=== PATIENT | male | born 1985 | race Hispanic/Latino ===

== ENCOUNTER 2018-04-09 10:00 | Emergency (ER) | payer SELFPAY ==
[2018-04-09] MEDS ORDERED: NA CHLORIDE 0.9% 1,000 ML ONE (11:16)
[2018-04-09 11:26] LABS: Absolute Lymphocytes (CBC) 1.3 K/uL (0.7-4.9); Absolute Monocytes 1.2 K/uL (0.1-1.3); Absolute Neutrophil 8.5 K/uL (1.8-8.0); Basophils % 0.3 % (0-1.3); Eosinophils % 0.5 % (0-4.4); Hematocrit 44.2 % (39.6-49.0); Lymphocytes % 11.6 % (15.3-44.8); MCH 29.5 pg (27.0-35.0); MCV 87.6 fL (80-100); Monocytes % 10.5 % (3.3-12.3); RBC Red Blood Cell Count 5.04 M/uL (4.33-5.43)
[2018-04-09 11:33] LABS: Potassium 4.8 mmol/L (3.5-5.1)
--- NOTE | 2018-04-09 12:06 | RAD REPORT ---
EXAM DESCRIPTION: CT - Maxillofacial W/Cont - 04/09/2018 11:53 am CLINICAL HISTORY: Left-sided facial swelling, soft tissue infection COMPARISON: None. TECHNIQUE: During dynamic enhancement using nonionic IV contrast, axial 2 millimeter thick images of the facial soft tissues performed. Sagittal and coronal reconstruction images were generated and rev iewed. FINDINGS: Edematous/inflammatory stranding is present in the soft tissues lateral inferior left-side . No air in the soft tissues. No abscess or drainable fluid collection. No skeletal muscle abnormality. Mastoid air cells and paranasal sinuses are clear. No globe or orbita l content abnormality. Parotid, thyroid gland and submandibular gland tissues are unremarkable. Patient has a few nonspecifi c bilateral cervical lymph nodes. No vascular abnormality. Intracranial portion of the examination is unremarkable. IMPRESSION: Cellulitis changes are present in the lateral inferior left side facial soft tissues. No abscess or drainable fluid collection.
[2018-04-09] MEDS ORDERED: LIDOCAINE 1% W/EPI 1:100,000 MDV 50 ML VIAL ONE (12:41)
--- NOTE | 2018-04-09 13:29 | ER ---
Nurse's Notes [facility] Name: Remi Juares Age: 32 yrs Sex: Male : 1985 Arrival Date: 04/09/2018 Time: 10:15 Bed 11 Private MD: None, None Diagnosis: Cutaneous abscess of face-Left lower jaw;Cellulitis of face-Left lower jaw Presentation: 04/09 10:29 Presenting complaint: Patient states: left sided facial swelling since Friday, shaved iw his face and had a bump that is now swollen, was seen at a clinic yesterday and prescribed abx and given a shot of Rocephin, family states it looks worse today, denies fever. Transition of care: patient was not received from another setting of care. Onset of symptoms was April 04, 2018. Risk Assessment: Do you want to hurt yourself or someone else? Patient reports no desire to harm self or others. Initial Sepsis Screen: Does the patient meet any 2 criteria? No. Patient's initial sepsis screen is negative. Does the patient have a suspected source of infection? No. Patient's initial sepsis screen is negative. Care prior to arrival: None. 10:29 Method Of Arrival: Ambulatory iw 10:29 Acuity: KORTNEY 3 iw Historical: - Allergies: 10:34 Clindamycin; iw - Home Meds: 10:34 Flagyl 500 mg Oral tab 1 tab every 12 hours [Active]; amoxicillin 500 mg Oral cap 1 cap iw every 8 hours [Active]; diclofenac sodium 75 mg oral TbEC 1 tab 2 times per day [Active]; - PMHx: 10:34 None; iw - PSHx: 10:34 2 cellulitis abscesses on his legs removed; iw - Immunization history:: Adult Immunizations Last tetanus immunization: unknown. - Social history:: Smoking status: Patient/guardian denies using tobacco. - Ebola Screening: : Patient negative for fever greater than or equal to 101.5 degrees Fahrenheit, and additional compatible Ebola Virus Disease symptoms Patient denies exposure to infectious person Patient denies travel to an Ebola-affected area in the 21 days before illness onset No symptoms or risks identified at this time. Screenin:05 Abuse screen: Denies threats or abuse. Denies injuries from another. Nutritional iw screening: No deficits noted. Tuberculosis screening: No symptoms or risk factors identified. Fall Risk IV access (20 points). Assessment: 10:35 General: Appears in no apparent distress. Behavior is. Pain: Complains of pain in left iw jaw. Neuro: Level of Consciousness is awake, alert, obeys commands, Oriented to person, place, time, situation, Moves all extremities. Full function. Cardiovascular: Patient's skin is warm and dry. Respiratory: Respiratory effort is even, unlabored, Respiratory pattern is regular, symmetrical. Derm: Skin is intact, is healthy with good turgor. Derm: Abscess located on left jaw. Musculoskeletal: Range of motion: intact in all extremities. 11:05 Reassessment: Patient appears in no apparent distress at this time. Patient and/or iw family updated on plan of care and expected duration. Pain level reassessed. Patient is alert, oriented x 3, equal unlabored respirations, skin warm/dry/pink. 12:41 Reassessment: Patient appears in no apparent distress at this time. Patient and/or iw family updated on plan of care and expected duration. Pain level reassessed. Patient is alert, oriented x 3, equal unlabored respirations, skin warm/dry/pink. Vital Signs: 10:34 BP 117 / 86; Pulse 75; Resp 16; Temp 98.6(TE); Pulse Ox 100% on R/A; Pain 7/10; iw 12:41 BP 107 / 64; Pulse 75; Resp 16; Pulse Ox 98% on R/A; iw ED Course: 10:15 Patient arrived in ED. mr 10:15 None, None is Private Physician. mr 10:29 Maribeth Hsieh, RN is Primary Nurse. iw 10:33 Triage completed. iw 10:34 Arm band placed on. iw 10:36 Milo Campbell PA is PHCP. cp 10:36 Cosme Alejandre MD is Attending Physician. cp 10:51 Radiology exam delayed due to lab results not completed at this time. (BUN/Creatinine). 11:05 Initial lab(s) drawn, by me, sent to lab. Inserted saline lock: 20 gauge in right iw antecubital area, using aseptic technique. Blood collected. 11:11 Radiology exam delayed due to lab results not completed at this time. (BUN/Creatinine). sj 11:47 CT completed. Patient tolerated procedure well. Patient moved to CT via wheelchair. sj Patient moved back from CT. 11:54 CT Maxillofacial W/cont In Process Unspecified. EDMS Administered Medications: 11:11 Drug: NS 0.9% 1000 ml Route: IV; Rate: 1 bolus; Site: right antecubital; iw 12:42 Follow up: IV Status: Completed infusion iw 13:00 Drug: Lidocaine-Epinephrine -1%: (1:100,000) 5 ml Volume: 20 ml; Route: Infiltration; iw 13:45 Drug: Rocephin - (cefTRIAXone) 1 grams {Note: given as IVP over 3 minutes .} Route: iw IVPB; Infused Over: 30 mins; Site: right antecubital; 13:50 Drug: Bactrim (160 mg-800 mg (DS) 1 tablet Route: PO; iw 13:50 Drug: Doxycycline 100 mg Route: PO; iw Outcome: 13:28 Discharge ordered by . avila 14:12 Patient left the ED. iw Signatures: Dispatcher [employer] EDMS Rae Oakley Susan sj Williams, Irene, RN RN iw Milo Campbell PA PA cp
--- NOTE | 2018-04-09 13:29 | EDPHYS ---
Physician Documentation [facility] Name: Remi Juares Age: 32 yrs Sex: Male : 1985 Arrival Date: 04/09/2018 Time: 10:15 Bed 11 Private MD: None, None ED Physician Cosme Alejandre HPI: 04/09 10:42 This 32 yrs old Male presents to ER via Ambulatory with complaints of Facial cp Swelling. 10:42 the patient presents with a swollen area of the left lower jaw. cp 10:42 Description: swollen, tense, warm. cp 10:42 Onset: The symptoms/episode began/occurred 6 day(s) ago. cp 10:42 Associated signs and symptoms: Pertinent negatives: drainage, fever, vomiting. cp 10:42 Severity of symptoms: in the emergency department the symptoms are actually worse. cp 10:42 The patient has been recently seen by a physician: at a clinic, with similar presenting cp complaints, prescribed oral Amoxicillin and Metronidazole. Historical: - Allergies: 10:34 Clindamycin; iw - Home Meds: 10:34 Flagyl 500 mg Oral tab 1 tab every 12 hours [Active]; amoxicillin 500 mg Oral cap 1 cap iw every 8 hours [Active]; diclofenac sodium 75 mg oral TbEC 1 tab 2 times per day [Active]; - PMHx: 10:34 None; iw - PSHx: 10:34 2 cellulitis abscesses on his legs removed; iw - Immunization history:: Adult Immunizations Last tetanus immunization: unknown. - Social history:: Smoking status: Patient/guardian denies using tobacco. - Ebola Screening: : Patient negative for fever greater than or equal to 101.5 degrees Fahrenheit, and additional compatible Ebola Virus Disease symptoms Patient denies exposure to infectious person Patient denies travel to an Ebola-affected area in the 21 days before illness onset No symptoms or risks identified at this time. ROS: 10:45 Constitutional: Negative for body aches, chills, fever, poor PO intake. cp 10:45 Eyes: Negative for injury, pain, redness, and discharge. cp 10:45 ENT: Negative for drainage from ear(s), ear pain, sinus congestion, sinus pain, dental pain, difficulty swallowing, difficulty handling secretions. 10:45 Neck: Negative for pain with movement, pain at rest, stiffness, swelling. 10:45 Respiratory: Negative for cough, shortness of breath, wheezing. 10:45 Abdomen/GI: Negative for abdominal pain, nausea, vomiting, and diarrhea. 10:45 Skin: Positive for swelling, of the left lower jaw. 10:45 Neuro: Negative for altered mental status, headache, weakness. 10:45 All other systems are negative. Exam: 10:52 Constitutional: The patient appears in no acute distress, alert, awake, non-toxic, well cp developed, well nourished. 10:52 Eyes: Pupils equal round and reactive to light, extra-ocular motions intact. Lids and cp lashes normal. Conjunctiva and sclera are non-icteric and not injected. Cornea within normal limits. Periorbital areas with no swelling, redness, or edema. 10:52 Head/face: Noted is swelling, that is moderate, of the left jaw, tenderness, that is mild, Sinus tenderness, is not appreciated. 10:52 ENT: External ear(s): are unremarkable, Ear canal(s): are normal, clear, TM's: dullness, bilaterally, Nose: is normal, Mouth: Lips: moist, Oral mucosa: pink and intact, moist, Posterior pharynx: is normal, airway is patent, no erythema, no exudate, Voice: is normal. 10:52 Neck: ROM/movement: is normal, is supple, without pain, no range of motions limitations, no meningismus, no nuchal rigidity. 10:52 Chest/axilla: Inspection: normal, Palpation: is normal, no crepitus, no tenderness. 10:52 Cardiovascular: Rate: normal, Rhythm: regular. 10:52 Respiratory: the patient does not display signs of respiratory distress, Respirations: normal, no use of accessory muscles, no retractions, no splinting, no tachypnea, Breath sounds: are clear throughout, no decreased breath sounds, no stridor, no wheezing. 10:52 Abdomen/GI: Exam negative for discomfort, distension, guarding, Inspection: abdomen appears normal. 10:52 Skin: abscess, that is small, of the left lower jaw, with surrounding cellulitis, that is mild. Vital Signs: 10:34 BP 117 / 86; Pulse 75; Resp 16; Temp 98.6(TE); Pulse Ox 100% on R/A; Pain 7/10; iw 12:41 BP 107 / 64; Pulse 75; Resp 16; Pulse Ox 98% on R/A; iw MDM: 10:36 Patient medically screened. 04/09 10:45 Order name: CBC with Diff; Complete Time: 11:39 04/09 12:09 Interpretation: Normal except: WBC 11.1. 04/09 10:45 Order name: BMP; Complete Time: 11:39 cp 04/09 10:45 Order name: CT Maxillofacial W/cont; Complete Time: 12:08 04/09 10:45 Order name: Wound Culture 04/09 10:45 Order name: IV; Complete Time: 11:07 04/09 12:11 Order name: I\T\D Setup; Complete Time: 12:38 04/09 13:32 Order name: Wound dressing; Complete Time: 13:56 cp Administered Medications: 11:11 Drug: NS 0.9% 1000 ml Route: IV; Rate: 1 bolus; Site: right antecubital; iw 12:42 Follow up: IV Status: Completed infusion iw 13:00 Drug: Lidocaine-Epinephrine -1%: (1:100,000) 5 ml Volume: 20 ml; Route: Infiltration; iw 13:45 Drug: Rocephin - (cefTRIAXone) 1 grams {Note: given as IVP over 3 minutes .} Route: iw IVPB; Infused Over: 30 mins; Site: right antecubital; 13:50 Drug: Bactrim (160 mg-800 mg (DS) 1 tablet Route: PO; iw 13:50 Drug: Doxycycline 100 mg Route: PO; iw Disposition: 18:52 Co-signature as Attending Physician, Cosme Alejandre MD I agree with the assessment and kdr plan of care. Disposition: 04/09/18 13:28 Discharged to Home. Impression: Cutaneous abscess of face - Left lower jaw, Cellulitis of face - Left lower jaw. - Condition is Stable. - Discharge Instructions: Skin Abscess, Cellulitis, Adult, Incision and Drainage. - Prescriptions for Bactrim DS 800- 160 mg Oral Tablet - take 1 tablet by ORAL route every 12 hours for 10 days; 20 tablet. Doxycycline Monohydrate 100 mg Oral Tablet - take 1 tablet by ORAL route every 12 hours for 10 days; 20 tablet. Naprosyn 500 mg Oral Tablet - take 1 tablet by ORAL route 2 times per day take with food; 20 tablet. - Medication Reconciliation Form, Thank You Letter, Antibiotic Education, Prescription Opioid Use form. - Follow up: Emergency Department; When: As needed; Reason: Worsening of condition. - Problem is new. - Symptoms have improved. Signatures: Dispatcher [employer] Cosme Salas MD MD kdr Williams, Irene, RN RN iw Milo Campbell PA PA cp Corrections: (The following items were deleted from the chart) 14:12 13:28 04/09/2018 13:28 Discharged to Home. Impression: Cutaneous abscess of face - Left iw lower jaw; Cellulitis of face - Left lower jaw. Condition is Stable. Forms are Medication Reconciliation Form, Thank You Letter, Antibiotic Education, Prescription Opioid Use. Follow up: Emergency Department; When: As needed; Reason: Worsening of condition. Problem is new. Symptoms have improved. cp 04/10 13:50 04/09 10:42 Onset: The symptoms/episode began/occurred 4 day(s) ago, cp cp
[2018-04-09] MEDS ORDERED: SMZ./TMP. 800/160 MG TABLET ONE (13:46)
[2018-04-09] MEDS ORDERED: CEFTRIAXONE/SWI 1gm 1 GM/10 ML SYR ONE (13:46)
[2018-04-09] MEDS ORDERED: DOXYCYCLINE 100 MG CAP PO ONE (13:46)
[2018-04-09 14:19] VITALS: TEMP 98.6
[2018-04-09 14:20] VITALS: BP 107/64; O2SAT 98
== END 2018-04-09 14:12 | disposition home or self-care (01) ==
LOC: ER 10:00
DX: L02.01 Cutaneous abscess of face (principal); Z88.3 Allergy status to other anti-infective agents
CPT/HCPCS: 36415; 70487; 80048; 85025; 87070; 87077; 87186; 87205; 96361; 96374; 99284; J0696; J7030; Q9967

== ENCOUNTER 2022-10-26 23:07 | Emergency (ER) | payer SELFPAY ==
[2022-10-27] MEDS ORDERED: TETRACAINE HCL 0.5% 4ML OPTH ONE (00:14)
[2022-10-27] MEDS ORDERED: FLUORESCEIN SODIUM 1 MG/WRAP ONE (00:14)
[2022-10-27] MEDS ORDERED: MORPHINE 4 MG/ML SYR ONE (00:36)
--- NOTE | 2022-10-27 00:41 | EDPHYS ---
Physician Documentation [facility] Name: Remi Juares Age: 36 yrs Sex: Male : 1985 Arrival Date: 10/26/2022 Time: 23:07 Bed 12 Private MD: ED Physician Yadiel Rhodes HPI: 10/27 00:00 This 36 yrs old Male presents to ER via Ambulatory with complaints of Eye cp Problem. 00:00 The patient is experiencing foreign body sensation, redness, to the left eye. Onset: cp The symptoms/episode began/occurred yesterday. Associated signs and symptoms: Pertinent negatives: dizziness, ear ache, fever, runny nose. Patient does not utilize any form of vision correction. Patient presents to ED with c/o foreign body sensation of left eye. Reports he was grinding stone yesterday while wearing eye glasses but noticed redness to left eye and feels like something is in eye. 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 - Social history:: Smoking status: Patient denies any tobacco usage or history of. ROS: 00:25 Constitutional: Negative for body aches, chills, fever, poor PO intake. cp 00:25 Eyes: Positive for foreign body sensation, redness, of the left eye, Negative for cp discharge, vision loss. 00:25 ENT: Negative for drainage from ear(s), ear pain, sore throat, difficulty swallowing, difficulty handling secretions. 00:25 Respiratory: Negative for cough, shortness of breath, wheezing. 00:25 Skin: Negative for cellulitis, rash. 00:25 Neuro: Negative for altered mental status, headache, weakness. 00:25 All other systems are negative. Exam: 00:28 Head/Face: Normocephalic, atraumatic. cp 00:28 Constitutional: The patient appears in no acute distress, alert, awake, non-toxic, well developed, well nourished. 00:28 Eyes: Periorbital structures: appear normal, Pupils: equal, round, and reactive to light and accomodation, Extraocular movements: intact throughout, Conjunctiva: subconjunctival hemorrhage(s), medial side of left eye, Corneas: abrasion, is not appreciated, foreign body, is not appreciated, a fluorescein strip employed to appreciate the findings, Sclera: abrasion, medial side of left eye, Lids and lashes: appear normal, on the left, Visual abdi: are intact, Examination of the other eye reveals no obvious gross abnormality. 00:28 ENT: External ear(s): are unremarkable, Nose: is normal, Mouth: Lips: moist, Oral mucosa: moist, Posterior pharynx: Airway: no evidence of obstruction, patent. 00:28 Chest/axilla: Inspection: normal. 00:28 Skin: cellulitis, is not appreciated, no rash present. Vital Signs: 00:12 BP 131 / 90; Pulse 61; Resp 18 S; Temp 98.2(TE); Pulse Ox 100% on R/A; Weight 86.18 kg as6 (R); Height 5 ft. 9 in. (R); Pain 3/10; 00:12 Body Mass Index 28.06 (86.18 kg, 175.26 cm) as6 00:12 Pain Scale: Adult as6 MDM: 10/26 23:57 Patient medically screened. cp 10/27 00:00 Differential diagnosis: Corneal abrasion of left eye. Foreign body in left eye. cp Infectious conjunctivitis in left eye. 00:40 Data reviewed: vital signs, nurses notes. cp 00:40 Counseling: I had a detailed discussion with the patient and/or guardian regarding: the cp historical points, exam findings, and any diagnostic results supporting the discharge/admit diagnosis, the need for outpatient follow up, an opthalmologist, to return to the emergency department if symptoms worsen or persist or if there are any questions or concerns that arise at home. Response to treatment: the patient's symptoms have markedly improved after treatment, and as a result, I will discharge patient. 10/26 23:42 Order name: Eye Tray; Complete Time: 00:12 cp 10/26 23:42 Order name: Fluoresene Opth strip; Complete Time: 00:12 cp 10/26 23:42 Order name: Visual Acuity; Complete Time: 01:24 cp Administered Medications: 00:32 Drug: Tetracaine Ophthalmic Drops 0.5 % 1 drops {Note: administered by provider .} as6 Route: Ophthalmic; Site: left eye; 01:31 Follow up: Response: No adverse reaction as6 01:20 CANCELLED (Physician Discretion): Gentamicin Ophthalmic Drops 0.3 % 1 drops Ophthalmic cp once Disposition: 19:37 Co-signature as Attending Physician, Yadiel Rhodes MD I agree with the assessment sp4 and plan of care. I reviewed the patient's care provided by the Advanced Practice Provider and agree with the diagnosis and treatment plan. Disposition Summary: 10/27/22 00:41 Discharge Ordered Location: Home cp Problem: new cp Symptoms: have improved cp Condition: Stable cp Diagnosis - Injury of Conjunctiva, left eye cp Followup: cp - With: - When: 2 - 3 days - Reason: Recheck today's complaints Discharge Instructions: - Discharge Summary Sheet cp - How to Use Eye Drops and Eye Ointments cp Forms: - Medication Reconciliation Form cp - Thank You Letter cp - Antibiotic Education cp - Prescription Opioid Use cp Prescriptions: - Vigamox 0.5 % Ophthalmic Drops - instill 1 drop by OPHTHALMIC route every 8 hours for 7 days; 5 milliliter; cp Refills: 0, Product Selection Permitted Signatures: Milo Campbell PA PA cp Kevyn Salinas, RAMESH RN as6 Yadiel Rhodes MD MD sp4 Corrections: (The following items were deleted from the chart) 01:20 00:30 Gentamicin Ophthalmic Drops 0.3 % 1 drops Ophthalmic once ordered. cp cp
--- NOTE | 2022-10-27 00:41 | ER ---
Nurse's Notes [facility] Name: Remi Juares Age: 36 yrs Sex: Male : 1985 Arrival Date: 10/26/2022 Time: 23:07 Bed 12 Private MD: Diagnosis: Injury of Conjunctiva, left eye Presentation: 10/27 00:12 Chief complaint: Patient states: "I think I got something in my eye while I was outside as6 working". Coronavirus screen: At this time, the client does not indicate any symptoms associated with coronavirus-19. Ebola Screen: No symptoms or risks identified at this time. Initial Sepsis Screen: Does the patient meet any 2 criteria? No. Patient's initial sepsis screen is negative. Does the patient have a suspected source of infection? No. Patient's initial sepsis screen is negative. Risk Assessment: Do you want to hurt yourself or someone else? Patient reports no desire to harm self or others. Onset of symptoms was October 26, 2022. 00:12 Acuity: KORTNEY 4 as6 00:12 Method Of Arrival: Ambulatory as6 Triage Assessment: 00:20 General: Appears in no apparent distress. Behavior is calm, cooperative. Pain: as6 Complains of pain in left eye. EENT: Sclera/Cornea are reddened in outer aspect of conjuctiva of left eye, iris of left eye and inner aspect of conjunctiva of left eye. Neuro: No deficits noted. Cardiovascular: No deficits noted. Respiratory: No deficits noted. GI: No deficits noted. No signs and/or symptoms were reported involving the gastrointestinal system. : No deficits noted. No signs and/or symptoms were reported regarding the genitourinary system. Derm: No deficits noted. No signs and/or symptoms reported regarding the dermatologic system. 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 - Social history:: Smoking status: Patient denies any tobacco usage or history of. Screenin:31 [facility] ED Fall Risk Assessment (Adult) Score/Fall Risk Level 0 - 2 = Low Risk. Abuse as6 screen: Denies threats or abuse. Denies injuries from another. Nutritional screening: No deficits noted. Tuberculosis screening: No symptoms or risk factors identified. Vital Signs: 00:12 BP 131 / 90; Pulse 61; Resp 18 S; Temp 98.2(TE); Pulse Ox 100% on R/A; Weight 86.18 kg as6 (R); Height 5 ft. 9 in. (R); Pain 3/10; 00:12 Body Mass Index 28.06 (86.18 kg, 175.26 cm) as6 00:12 Pain Scale: Adult as6 ED Course: 10/26 23:09 Patient arrived in ED. don 23:10 Milo Campbell PA is PHCP. cp 23:10 Yadiel Rhodes MD is Attending Physician. cp 10/27 00:12 Kevyn Salinas, RAMESH is Primary Nurse. as6 00:12 Arm band placed on. as6 00:14 Triage completed. as6 00:41 Amanda Mirza MD is Referral Physician. cp 01:31 Bed in low position. Call light in reach. as6 01:31 No provider procedures requiring assistance completed. Patient did not have IV access as6 during this emergency room visit. Administered Medications: 00:32 Drug: Tetracaine Ophthalmic Drops 0.5 % 1 drops {Note: administered by provider .} as6 Route: Ophthalmic; Site: left eye; 01:31 Follow up: Response: No adverse reaction as6 01:20 CANCELLED (Physician Discretion): Gentamicin Ophthalmic Drops 0.3 % 1 drops Ophthalmic cp once Medication: 01:31 VIS not applicable for this client. as6 Outcome: 00:41 Discharge ordered by MD. 01:25 Patient left the ED. 01:31 Discharged to home ambulatory. as6 01:31 Condition: stable 01:31 Discharge instructions given to patient, Instructed on discharge instructions, follow up and referral plans. medication usage, Demonstrated understanding of instructions, follow-up care, medications, Prescriptions given X 1. Signatures: Anastasiia Ceja RN RAMESH Milo Campbell PA PA cp Alexander, Jessica ja Kevyn Salinas, RAMESH RN as6
[2022-10-27] MEDS ORDERED: GENTAMICIN 0.3% OPTH DROP 5ML ONE (01:26)
[2022-10-27 01:34] VITALS: BP 131/90; TEMP 98.2; O2SAT 100
== END 2022-10-27 01:25 | disposition home or self-care (01) ==
LOC: ER 23:07
DX: S05.02XA Injury of conjunctiva and corneal abrasion without foreign body, left eye, initial encounter (principal)
CPT/HCPCS: 99283